=== PATIENT | female | born 1995 | race Caucasian/White ===

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

== ENCOUNTER → 2017-02-07 | Outpatient (CLI) | payer OTHER ==
[2017-02-10 07:21] LABS: CHLAMYDIA TRACH RNA*** NOT DETECTED (NOT DETECTED); GC (NEIS GONORRHOEAE)RNA** NOT DETECTED (NOT DETECTED)
== END | disposition home or self-care (01) ==
LOC: C.LABSPEC 17:55
PROVIDERS: ATTEND Physician Assistant
DX: Z20.2 Contact with and (suspected) exposure to infections with a predominantly sexual mode of transmission (principal)

== ENCOUNTER → 2017-06-30 | Outpatient (CLI) | payer OTHER ==
[2017-06-30 12:31] LABS: BASO % 0.5 %; BASO ABS # 0.03 K/uL (0-0.2); EOS % 3.7 %; EOS ABS # 0.22 K/uL (0-0.5); HEMATOCRIT 39.8 % (37-47); HEMOGLOBIN 13.5 g/dL (12.0-16.0); IG# 0.01 K/uL (0.00-0.02); LYMPH % 38.3 %; MEAN CELL VOLUME 87.7 fL (80-100); MEAN CORPUSCULAR HEMOGLOBIN 29.7 pg (25-34); MEAN CORPUSCULAR HGB CONC 33.9 g/dl (32-36); MEAN PLATELET VOLUME 11.1 fL (7.4-10.4); MONO ABS # 0.78 K/uL (0.11-0.59); NEUT % 44.3 %; NEUT ABS # 2.66 K/uL (1.4-6.5); PLATELET COUNT 254 K/uL (130-400); RED CELL DISTRIBUTION WIDTH CV 13.1 % (11.5-14.5)
[2017-06-30 13:11] LABS: BLOOD UREA NITROGEN 13 mg/dl (7-18); CALCIUM 9.2 mg/dl (8.5-10.1); CARBON DIOXIDE 24 mmol/L (21-32); CREATININE 0.69 mg/dl (0.60-1.20); GLUCOSE 98 mg/dl (70-99); POTASSIUM 3.7 mmol/L (3.5-5.1); SODIUM 139 mmol/L (136-145)
== END ==
LOC: C.LABBFT 09:34
PROVIDERS: ATTEND Internal Medicine
DX: R53.83 Other fatigue (principal)

== ENCOUNTER 2017-07-22 10:40 | Emergency (ER) | payer OTHER ==
[~2017-07-22] VITALS: Ht 165.1 cm; Wt 59.8 kg
[2017-07-22 10:45] VITALS: TEMP 36.6; Ht 165.1 cm; Wt 59.8 kg
[2017-07-22] MEDS ORDERED: SODIUM CHLORIDE 0.9% 1000ML 1,000 ML IV STA (11:14)
[2017-07-22] MEDS ORDERED: ONDANSETRON INJ 2 MG/ML 2 ML VIAL IV STA (11:14)
[2017-07-22] MEDS ORDERED: FENTANYL CITRATE INJ 50 MCG/1 ML 2 ML VIAL IV PRN (11:15)
[2017-07-22] MEDS ORDERED: ESCI10TA17 PO (11:27)
[2017-07-22] MEDS ORDERED: ETON1IMP2 (11:27)
[2017-07-22] MEDS ORDERED: TRAZ50TA35 PO (11:27)
[2017-07-22] MEDS ORDERED: MONT1TAB3 PO (11:27)
[2017-07-22 11:43] LABS: BASO % 0.4 %; BASO ABS # 0.02 K/uL (0-0.2); EOS ABS # 0.11 K/uL (0-0.5); HEMATOCRIT 41.1 % (37-47); HEMOGLOBIN 14.5 g/dL (12.0-16.0); IG# 0.01 K/uL (0.00-0.02); LYMPH % 43.1 %; LYMPH ABS # 2.33 K/uL (1.2-3.4); MEAN CELL VOLUME 86.3 fL (80-100); MEAN CORPUSCULAR HEMOGLOBIN 30.5 pg (25-34); MEAN CORPUSCULAR HGB CONC 35.3 g/dl (32-36); MEAN PLATELET VOLUME 10.7 fL (7.4-10.4); NEUT % 41.3 %; NEUT ABS # 2.23 K/uL (1.4-6.5); PLATELET COUNT 250 K/uL (130-400); RED CELL DISTRIBUTION WIDTH CV 12.6 % (11.5-14.5); RED CELL DISTRIBUTION WIDTH SD 40.3 fL (36.4-46.3)
[2017-07-22 12:10] LABS: CREATININE 0.72 mg/dl (0.60-1.20)
--- NOTE | 2017-07-22 12:20 | DIAGNOSTIC IMAGING REPORT ---
CHEST 2 VIEWS ROUTINE CLINICAL HISTORY: Chest tightness, shortness of breath. Pain, radiating to the abdomen. COMPARISON STUDY: No previous studies for comparison. FINDINGS: The cardiac and mediastinal contours are normal. There is no evidence of focal pulmonary consolidation. There is no evidence of failure. No pleural effusions are visualized.[ There is no free intraperitoneal air. IMPRESSION: No active disease in the chest. Electronically signed by: Kevin Schwarz M.D. 07/22/2017 12:18 PM Dictated Date/Time: 07/22/2017 12:18 PM
[2017-07-22 12:28] LABS: POTASSIUM 3.9 mmol/L (3.5-5.1); TOTAL PROTEIN 8.8 gm/dl (6.4-8.2)
--- NOTE | 2017-07-22 12:36 | DIAGNOSTIC IMAGING REPORT ---
BILIARY ULTRASOUND CLINICAL HISTORY: Right upper quadrant abdominal pain COMPARISON STUDY: No previous studies for comparison. FINDINGS: The pancreas is sonographically normal. The liver sonographically normal. The gallbladder is sonographically normal. There is no ductal dilatation. The common bile duct measures 2 mm. There is no right-sided hydronephrosis. IMPRESSION: Normal biliary ultrasound. Electronically signed by: Kevin Schwarz M.D. 07/22/2017 12:34 PM Dictated Date/Time: 07/22/2017 12:34 PM
[2017-07-22] MEDS ORDERED: MoRPHine SULFATE 4 MG/ML 1 ML CARP\\VIAL IV STA (12:55)
[2017-07-22] MEDS ORDERED: PRLSR20 PO (12:59)
[2017-07-22 13:31] VITALS: BP 107/62; PULSE 67; O2SAT 97
--- NOTE | 2017-07-22 18:20 | EMERGENCY ROOM VISIT NOTE ---
ED Visit Note First contact with patient: 10:55 Chief Complaint: Chest pain. History of Present Illness: Ms. Forrester is a 22 year-old white female who ambulates into the ED accompanied by her boyfriend complaining of in the epigastric area. Historically patient reports a significant coronary and gastrointestinal disorders or surgeries. She does note in her history that she does smoke and uses estrogen control. She reports intermittently over the last month she has been having episodes of palpitations. She was seen by her PCP and a CBC and BMP returned and was negative. She was told she was okay and there was no significant findings per Patient reports a acute onset of epigastric abdominal pain that started approximately 12 hours ago. Patient reports approximately clock 10 PM last evening she ate and then went to bed at 11 PM. Shortly after falling asleep she was woken from sleep with an acute onset of pain. Since that time her pain has been constant but has slightly waxed and waned in intensity. She places the majority and her constant discomfort in the epigastric area. She describes this as an achy sensation. She rates this discomfort 5/10. She does have radiation into the right upper quadrant of the same description and quality. She also reports that when she lies down her pain radiates into the midsternal area and is described as sharp and her discomfort increases to 8/10. She has not taken any medications or therapies for her discomfort prior to arrival at the hospital. She has identified that palpation of the abdomen and chest increases her discomfort. She does have mild relief of her discomfort when she sits upright. Associated with her discomfort she reports that when her chest pain becomes severe she feels short of breath and that she has been continuously nauseated but has not vomited. She also continues to have intermittent palpitations. Patient denies fevers, chills, sweats, skin eruptions, skin color changes, upper respiratory tract symptoms, diarrhea, constipation, rectal bleeding, black /tarry stools, urinary symptoms, hematuria, vaginal bleeding, vaginal discharge , back/flank pain. Review of Systems: As noted above in history of present illness. All body systems were reviewed and found to be negative as noted above. Past Medical History: As previously noted, asthma, seasonal allergies and status post tonsillectomy. Current Medications: Medications Dose Route/Sig Max Daily Dose Days Date Category Trazodone (Trazodone HCl) 50 Mg Tab 50 Mg PO HS PRN 07/22/17 Reported Lexapro (Escitalopram Oxalate) 10 Mg Tab 5 Mg PO DAILY 07/22/17 Reported Singulair (Montelukast Sodium) 10 Mg Tab 10 Mg PO DAILY 07/22/17 Reported Nexplanon (Etonogestrel) 68 Mg Imp 07/22/17 Reported Allergies to Medications: Patient denies. Social History: Patient is currently employed; she feels safe in her home environment; she admits to tobacco and alcohol use. Physical Examination: Vital Signs: Date Time Temp Pulse Resp B/P (MAP) Pulse Ox O2 Delivery O2 Flow Rate FiO2 07/22/17 13:31 67 12 107/62 97 07/22/17 12:46 66 07/22/17 12:44 68 12 125/94 98 Room Air 07/22/17 11:48 69 16 115/78 97 Room Air 07/22/17 10:45 36.6 76 20 114/71 99 Room Air GENERAL: 22-year-old female in minimal distress due to pain, nontoxic-appearing , afebrile and hemodynamically stable. NEUROLOGICAL: Awake, alert and oriented to person, place and time. Answering questions appropriately and following commands. Normal gait. Good hand eye coordination. SKIN: Warm, dry and pink. No soft tissue eruptions or trauma noted. HEENT: Atraumatic and normocephalic. PERRLA. Sclera white and conjunctiva pink. Oral cavity moist and pink. Pharynx is nonerythematous or edematous. Speech normal. No lymphadenopathy. Trachea midline. No jugular venous distention. No carotid bruits. BACK: No tenderness over the bony spine. No CVA tenderness. THORAX: Lungs sounds are clear to auscultation and equal bilaterally with symmetrical chest wall. No wheezing, rales or rhonchi. With mild tenderness over the lower sternal area without bony crepitus, bony deformity subcutaneous air or deformities noted. HEART: Regular rate and rhythm. No gallops, rubs or murmurs are appreciated. PMI is not displaced. No lifts, heaves or thrills. ABDOMEN: Flat and soft with mild tenderness in the epigastric and right quadrant areas. Positive bowel sounds in all quadrants. No guarding, rigidity or organomegaly. EXTREMITIES: Moves all extremities well on command and with purpose. All distal neurovascular statuses are intact and equal bilaterally. ED Course: Patient is assessed as noted above. She is assessed as noted above. Laboratory Testing: Test 07/22/17 11:25 07/22/17 11:36 Range/Units White Blood Count 5.40 4.8-10.8 K/uL Red Blood Count 4.76 4.2-5.4 M/uL Hemoglobin 14.5 12.0-16.0 g/dL Hematocrit 41.1 37-47 % Mean Corpuscular Volume 86.3 80-100 fL Mean Corpuscular Hemoglobin 30.5 25-34 pg Mean Corpuscular Hemoglobin Concent 35.3 32-36 g/dl Platelet Count 250 130-400 K/uL Mean Platelet Volume 10.7 7.4-10.4 fL Neutrophils (%) (Auto) 41.3 % Lymphocytes (%) (Auto) 43.1 % Monocytes (%) (Auto) 13.0 % Eosinophils (%) (Auto) 2.0 % Basophils (%) (Auto) 0.4 % Neutrophils # (Auto) 2.23 1.4-6.5 K/uL Lymphocytes # (Auto) 2.33 1.2-3.4 K/uL Monocytes # (Auto) 0.70 0.11-0.59 K/uL Eosinophils # (Auto) 0.11 0-0.5 K/uL Basophils # (Auto) 0.02 0-0.2 K/uL RDW Standard Deviation 40.3 36.4-46.3 fL RDW Coefficient of Variation 12.6 11.5-14.5 % Immature Granulocyte % (Auto) 0.2 % Immature Granulocyte # (Auto) 0.01 0.00-0.02 K/uL Urine Color YELLOW Urine Appearance CLEAR CLEAR Urine pH 8.0 4.5-7.5 Urine Specific [place] 1.014 1.000-1.030 Urine Protein NEG NEG Urine Glucose (UA) NEG NEG Urine Ketones NEG NEG Urine Occult Blood NEG NEG Urine Nitrite NEG NEG Urine Bilirubin NEG NEG Urine Urobilinogen NEG NEG Urine Leukocyte Esterase SMALL NEG Urine WBC (Auto) 1-5 0-5 /hpf Urine RBC (Auto) 0-4 0-4 /hpf Urine Hyaline Casts (Auto) 1-5 0-5 /lpf Urine Epithelial Cells (Auto) 20-30 0-5 /lpf Urine Bacteria (Auto) 1+ NEG Urine Test NEG NEG Sodium Level 138 136-145 mmol/L Potassium Level 3.9 3.5-5.1 mmol/L Chloride Level 107 98-107 mmol/L Carbon Dioxide Level 26 21-32 mmol/L Anion Gap 5.0 3-11 mmol/L Blood Urea Nitrogen 13 7-18 mg/dl Creatinine 0.72 0.60-1.20 mg/dl Est Creatinine Clear Calc Drug Dose 112.2 ml/min Estimated GFR () 139.7 Estimated GFR (Non- 120.6 BUN/Creatinine Ratio 18.1 10-20 Random Glucose 87 70-99 mg/dl Calcium Level 9.0 8.5-10.1 mg/dl Total Bilirubin 0.6 0.2-1 mg/dl Direct Bilirubin 0.1 0-0.2 mg/dl Aspartate Amino Transf (AST/SGOT) 13 15-37 U/L Alanine Aminotransferase (ALT/SGPT) 19 12-78 U/L Alkaline Phosphatase 62 45-117 U/L Total Protein 8.8 6.4-8.2 gm/dl Albumin 5.0 3.4-5.0 gm/dl Lipase 121 73-393 U/L Bedside D-Dimer 184 0-450 ng/mlFEU Bedside Troponin I < 0.030 0-0.045 ng/ml Chest X-Rays: Was read by myself and the radiologist and shows no acute infiltrates, effusions or pneumothorax. Normal heart silhouette and bony anatomy. No free air under the diaphragm. Right Upper Quadrant Ultrasound: Were reviewed by myself and read by the radiologist and shows normal-appearing liver, pancreas and kidney. Normal- appearing gallbladder with no ductal dilatation or gallstones Patient was hydrated with normal saline and initially she received 50 mcg of fentanyl IV and 4 mg of Zofran IV. Patient was reassessed multiple times during her stay in the emergency department. After return from ultrasound she reported increasing pain and rated her discomfort 7/10. She was given 4 mg of morphine IV for pain. Patient's case was reviewed with Dr. Tijerina; we agreed on diagnostic approach, treatment, disposition and plan. Patient was educated about today's findings and instructed on her treatment plan ; she verbalized understanding and agreement with this plan. Clinical Impression: Epigastric abdominal pain. Decision-Making: Patient discharged home in stable condition accompanied by her boyfriend; prior to departure she was reassessed and subjectively reported she was feeling better and rated her discomfort 5/10. Disposition: Initially my differential diagnosis I considered cholecystitis, pancreatitis, hepatitis, GERD, pneumonia, acute coronary syndrome, musculoskeletal disorder and other causes. Plan: Patient was encouraged to use acetaminophen every 6 hours as needed for pain and avoid NSAIDs. Patient was prescribed Prilosec 20 mg once a day. Patient was encouraged to use a bland diet and avoid stomach irritants. Patient was encouraged to avoid tobacco with her estrogen control because of increased risks of blood clotting. Patient was encouraged to avoid eating 2 hours before sleep or bedtime. Patient was encouraged to follow-up with her PCP for recheck and possible referral for EGD. Patient was encouraged return the ED for worsening/uncontrolled pain, fevers, shortness of breath, uncontrolled vomiting, bloody vomitus, bloody stools or any new/concerning symptoms.
== END 2017-07-22 13:33 | disposition home or self-care (01) ==
LOC: C.EDB 10:42 → C.EDC 13:33
DX: R10.13 Epigastric pain (principal); F17.210 Nicotine dependence, cigarettes, uncomplicated; Z79.3 Long term (current) use of hormonal contraceptives; J45.909 Unspecified asthma, uncomplicated